=== PATIENT | female | born 1995 | race Native Hawaiian/Other Pacific Islander ===

== ENCOUNTER 2017-03-30 17:37 | Emergency (ER) | payer OTHER, BC | END 2017-03-30 18:12 | disposition home or self-care (01) | LOC: ED 17:37 | DX: R52 Pain, unspecified (principal) ==

== ENCOUNTER 2017-04-21 11:30 | Outpatient (CLI) | payer BC | END 2017-04-21 19:29 | disposition home or self-care (01) | LOC: RAD 11:30 | DX: M25.572 Pain in left ankle and joints of left foot (principal) ==